=== PATIENT | male | born 1995 | race Caucasian/White ===

== ENCOUNTER 2017-11-12 12:55 | Emergency (ER) | payer SELFPAY ==
[2017-11-12 13:06] VITALS: BMI 35.9
[2017-11-12 13:09] VITALS: RESP 18; TEMP 98.3
[2017-11-12] MEDS ORDERED: TDAP Vaccine 0.5 mL Syr IM ONE (13:19)
[2017-11-12] MEDS ORDERED: ceFAZolin IV 2 gm in 50 mL D5W IVPB STA (13:26)
--- NOTE | 2017-11-12 13:35 | ED PDOC ---
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 Patient states he was assembling cabinets at work with a nail gun when a staple accidentally went through and across the top bed of his thumb sustaining immediate pain to the area. Patient had his work clothing material gloves on with no rubber during the incident. Patient denies any loss of sensation, tingling, difficulty moving his thumb or any other trauma. Patient denies any other medical complaints. Time/Duration: Prior to Arrival Symptom Onset: Sudden Quality: Aching Context: Work Past Medical History - Provider Review Nursing Documentation Reviewed: Yes - Infectious Disease Hx of Infectious Diseases: None - Psychiatric Hx Substance Use: No Family/Social History - Physician Review Nursing Documentation Reviewed: Yes Family/Social History: No Known Family HX Smoking Status: Never Smoked Hx Alcohol Use: No Hx Substance Use: No Allergies/Home Meds Allergies/Adverse Reactions: Allergies No Known Allergies Allergy (Verified 11/12/17 13:06) Review of Systems - Physician Review All systems were reviewed & negative as marked: Yes - Review of Systems Constitutional: absent: Fevers Respiratory: absent: SOB Cardiovascular: absent: Chest Pain Gastrointestinal: absent: Abdominal Pain, Nausea, Vomiting Musculoskeletal: absent: Back Pain, Neck Pain Skin: Other (puncture wound on right thumb) Neurological: absent: Headache, Dizziness Physical Exam Vital Signs Reviewed: Yes Vital Signs Temp Pulse Resp BP Pulse Ox 11/12/17 13:06 98.3 F 79 18 143/96 H 98 Temperature: Afebrile Blood Pressure: Normal Pulse: Regular Respiratory Rate: Normal Appearance: Positive for: Well-Appearing, Non-Toxic, Comfortable Pain Distress: Moderate Mental Status: Positive for: Alert and Oriented X 3 - Systems Exam Head: Present: Atraumatic, Normocephalic Pupils: Present: PERRL Extroacular Muscles: Present: EOMI Conjunctiva: Present: Normal Mouth: Present: Moist Mucous Membranes Neck: Present: Normal Range of Motion Respiratory/Chest: Present: Clear to Auscultation, Good Air Exchange. No: Respiratory Distress, Accessory Muscle Use Cardiovascular: Present: Regular Rate and Rhythm, Normal S1, S2. No: Murmurs Abdomen: No: Tenderness, Distention, Peritoneal Signs Back: Present: Normal Inspection Upper Extremity: Present: Normal Inspection, Normal ROM, NORMAL PULSES, Neurovascularly Intact, Other (Rt. hand thumb region: visible U-shaped silver color staple puncture from the rt. hand dorsum thumb nail region with no visible subungal hematoma and pentrate the pad of the rt. thumb region, no oozing/discharge, normal 2pts. discrimination with full sensation intact, motor 5/5, +radial pulse, capillary refill< 2 seconds, neurovascular intact. ). No: Cyanosis, Edema, Deformity Lower Extremity: Present: Normal Inspection, Normal ROM, Neurovascularly Intact , Capillary Refill < 2 s. No: Edema, Tenderness, Swelling, Deformity Neurological: Present: GCS=15, CN II-XII Intact, Speech Normal, Motor Func Grossly Intact, Gait Normal, Memory Normal Skin: Present: Warm, Dry, Normal Color. No: Rashes Psychiatric: Present: Alert, Oriented x 3, Normal Insight, Normal Concentration Medical Decision Making ED Course and Treatment: 11/12/17 13:19 Impression: 22 year old male presents to the Emergency department s/p accidental staple insertion through his right thumb. Differential Diagnosis included but are not limited to: Puncture wound Plan: -- X-ray -- TDAP -- Toradol -- Cefazolin -- Reassess and disposition 11/12/17 14:52 Rt. hand xray: Metal staple in the thumb. No evidence of fracture PROCEDURE: FOREIGN BODY REMOVAL Performed by the emergency provider Timeout: A timeout to verify the correct patient, procedure, and site was performed immediately prior to the procedure. Indication: Foreign body in rt. hand thumb region, cloth glove cut off with the scissor and leaving the staple only, irrigate with normal saline 1000cc, clean with betadine Procedure: The staple was removed using needle pick up truck driver with single attempt. Post-procedure: Patient tolerated the procedure well with no immediate complications. The foreign body was removed and no other foreign body noted, irrigated with normal saline 1000cc and clean with betadine. There was no bleeding, gauze dressing, cling. Patient tolerated the procedure well with no complications. Total procedure time 20 minutes. 11/12/17 15:22 -I explained to the patient that he should get hand specialist follow up for any other soft tissue injury. -Repeated s/p removal of foreign body xray rt. hand thumb: No acute fracture or dislocation. No radiopaque foreign body. -Pt. feels much better. -Discharge home with keflex, motrin, bacitracin oinment, follow up with your own pmd and hand specialist within 2 days, return to the ER for any new or worsening signs or symptoms - RAD Interpretation Radiology Orders: 11/12/17 13:19 HAND RIGHT THUMB [RAD] Stat 11/12/17 14:40 HAND RIGHT THUMB [RAD] Stat Rt. hand thumb xray initial: HISTORY: rt. hand 1st digit thumb puncture wound COMPARISON: None. FINDINGS: BONES: Normal. No fracture. JOINTS: Normal. No osteoarthritic changes. SOFT TISSUES: There is a metal staple in the thumb. OTHER FINDINGS: None. IMPRESSION: Metal staple in the thumb. No evidence of fracture Rt. hand thumb xray post: HISTORY: rt. hand staple wound COMPARISON: None. TECHNIQUE: AP radiograph of the right hand, as well as spot oblique and lateral images of thumb were obtained. FINDINGS: RIGHT THUMB: Bone alignment and mineralization are normal. There is no acute displaced fracture or bone destruction in the thumb.Remainder of the right hand (as seen on the AP view) grossly unremarkable. JOINTS: Normal. SOFT TISSUES: Normal. No radiopaque foreign body. OTHER FINDINGS: None. IMPRESSION: No acute fracture or dislocation. No radiopaque foreign body. Grants Administrator: Radiologist - Medication Orders Current Medication Orders: Discontinued Medications Cefazolin Sodium/Dextrose (Ancef Iv 2 Gm Duplex) 2 gm in 50 mls @ 50 mls/hr IVPB STAT STA Stop: 11/12/17 14:25 Last Admin: 11/12/17 14:20 Dose: 50 mls/hr eMAR Start Stop Document 11/12/17 14:20 HI (Rec: 11/12/17 14:32 [id number] Intravenous Solution Start Date 11/12/17 Start Time 14:20 Ketorolac Tromethamine (Toradol) 30 mg IVP STAT STA Stop: 11/12/17 13:20 Last Admin: 11/12/17 14:20 Dose: 30 mg MAR Pain Assessment Document 11/12/17 14:20 HI (Rec: 11/12/17 14:33 [id number] Pain Reassessment Is this a pain reassessment? No Sleep Is patient sleeping during reassessment? No Presence of Pain Presence of Pain Yes Pain Scale Used Pain Scale Used Numeric Location Left, Right or Bilateral Right Pain Location Body Site Thumb Description Description Sharp IVP Administration Document 11/12/17 14:20 HI (Rec: 11/12/17 14:33 [id number] Charges for Administration # of IVP Administrations 1 Tetanus/Reduced Diphtheria/Acell Pertussis (Boostrix Vaccine Inj) 0.5 ml IM .ONCE ONE Stop: 11/12/17 13:20 Last Admin: 11/12/17 14:20 Dose: 0.5 ml Immunization Registry Document 11/12/17 14:20 HI (Rec: 11/12/17 14:32 [id number] Immunization Registry Consent Date 11/12/17 - PA / PIT MANAGER / Resident Statement MD/DO has reviewed & agrees with the documentation as recorded. - Scribe Statement The provider has reviewed the documentation as recorded by the Scribe Kalli Barroso. All medical record entries made by the Carlibcathryn were at my direction and personally dictated by me. I have reviewed the chart and agree that the record accurately reflects my personal performance of the history, physical exam, medical decision making, and the department course for this patient. I have also personally directed, reviewed, and agree with the discharge instructions and disposition. Disposition/Present on Arrival - Present on Arrival Any Indicators Present on Arrival: No History of DVT/PE: No History of Uncontrolled Diabetes: No Urinary Catheter: No History of Decub. Ulcer: No History Surgical Site Infection Following: None - Disposition Have Diagnosis and Disposition been Completed?: Yes Diagnosis: Puncture wound, Injury by nail gun, Foreign body (FB) in soft tissue Disposition: HOME/ ROUTINE Disposition Time: 15:13 Patient Plan: Discharge Patient Problems: Current Active Problems Problem Status Onset Puncture wound Acute Injury by nail gun Acute Foreign body (FB) in soft tissue Acute Condition: IMPROVED Additional Instructions: -Discharge home with keflex, motrin, bacitracin oinment, follow up with your own pmd and hand specialist within 2 days, return to the ER for any new or worsening signs or symptoms. Prescriptions: Bacitracin Ointment [Bacitracin] 1 appful TOP BID #15 g Cephalexin [Keflex] 500 mg PO QID #40 capsule Ibuprofen [Motrin Tab] 600 mg PO QID #28 tab Referrals: Kalpesh Figueredo MD [Staff Provider] - Follow up with primary [facility] [place] [Outside] - Follow up with primary [facility] [place] [Outside] - Follow up with primary Forms: [facility] (Ecuadorean), WORK NOTE
--- NOTE | 2017-11-12 14:39 | RAD ---
PROCEDURE: Right Hand Radiographs. HISTORY: rt. hand 1st digit thumb puncture wound COMPARISON: None. FINDINGS: BONES: Normal. No fracture. JOINTS: Normal. No osteoarthritic changes. SOFT TISSUES: There is a metal staple in the thumb. OTHER FINDINGS: None. IMPRESSION: Metal staple in the thumb. No evidence of fracture
--- NOTE | 2017-11-12 15:14 | RAD ---
Date of service: 11/12/2017 PROCEDURE: Right Thumb radiographs. HISTORY: rt. hand staple wound COMPARISON: None. TECHNIQUE: AP radiograph of the right hand, as well as spot oblique and lateral images of thumb were obtained. FINDINGS: RIGHT THUMB: Bone alignment and mineralization are normal. There is no acute displaced fracture or bone destruction in the thumb.Remainder of the right hand (as seen on the AP view) grossly unremarkable. JOINTS: Normal. SOFT TISSUES: Normal. No radiopaque foreign body. OTHER FINDINGS: None. IMPRESSION: No acute fracture or dislocation. No radiopaque foreign body.
[2017-11-12 16:16] VITALS: BP 132/79; PULSE 72; O2SAT 99
== END 2017-11-12 15:26 | disposition home or self-care (01) ==
LOC: ED 12:55
DX: S61.031A Puncture wound without foreign body of right thumb without damage to nail, initial encounter (principal); S60.551A Superficial foreign body of right hand, initial encounter; W45.0XXA Nail entering through skin, initial encounter; Y99.0 Civilian activity done for income or pay; Z23 Encounter for immunization
CPT/HCPCS: 73140; 90471; 90715; 96374; 99284; J0690; J1885